=== PATIENT | female | born 1985 | race African-American/Black ===

== ENCOUNTER 2017-09-12 05:42 | Emergency (ER) | payer OTHER, SELFPAY ==
[2017-09-12 06:44] LABS: Absolute Lymphocytes (CBC) 1.2 K/uL (0.7-4.9); Absolute Monocytes 0.7 K/uL (0.1-1.3); Absolute Neutrophil 14.1 K/uL (1.8-8.0); Basophils % 0.7 % (0-1.3); Eosinophils % 0.1 % (0-4.4); Hematocrit 36.8 % (36.0-45.0); Lymphocytes % 7.5 % (15.3-44.8); MCH 26.2 pg (27.0-35.0); MCV 79.3 fL (80-100); MPV 8.9 fL (7.6-11.3); Monocytes % 4.3 % (3.3-12.3); RBC Red Blood Cell Count 4.64 M/uL (3.86-4.86)
[2017-09-12 06:48] LABS: Protime INR 1.01
[2017-09-12 06:57] LABS: Bicarbonate 27 mEq/L (21-31); Glucose Level 104 mg/dL (65-120); Potassium 3.5 mEq/L (3.6-5.0); Sodium Level 141 mEq/L (135-145)
[2017-09-12 07:03] LABS: ALT/SGPT 15 IU/L (10-60); AST/SGOT 16 IU/L (10-42); Albumin 3.9 g/dL (3.2-5.5); Alkaline Phosphatase 71 IU/L (42-121); BUN Blood Urea Nitrogen 10 mg/dL (6-20); Bilirubin Direct 0.1 mg/dL (0-0.2); Bilirubin Total 0.2 mg/dL (0.3-1.2); Magnesium 1.8 mg/dL (1.8-2.5); Protein, Total 7.2 g/dL (6.0-8.3)
[2017-09-12 07:10] LABS: Urine Blood 3+ (NEG); Urine Glucose NEGATIVE (NEG); Urine Protein NEGATIVE (NEG); Urine Specific Gravity <1.005 (1.005-1.030); Urine pH 6.5 (5.0-7.0)
[2017-09-12] MEDS ORDERED: NA CHLORIDE 0.9% 1,000 ML ONE (07:16)
--- NOTE | 2017-09-12 07:36 | EKG ---
Test Date: 2017-09-12 Test Time: 05:55:48 Lead Dental Assistant: BRYAN MEASUREMENT RESULTS: Intervals: Rate: 69 WA: 150 QRSD: 88 QT: 398 QTc: 426 Mack: P: 8 WA: 150 QRS: 25 T: 22 INTERPRETIVE STATEMENTS: Normal sinus rhythm Normal ECG No previous ECG available for comparison Electronically Signed On 09-12-17 07:36:16 CDT by Gilmer Mcdonough
--- NOTE | 2017-09-12 08:19 | ER ---
Nurse's Notes [facility] Name: Qi Hoskins Age: 32 yrs Sex: Female : 1985 Arrival Date: 09/12/2017 Time: 05:44 Bed 20 Private MD: Diagnosis: Chest pain, unspecified Presentation: 09/12 05:45 Presenting complaint: Patient states: "I began having chest pain about 3 hours ago and bs1 shortness of breath, I have a hx of a heart murmur.". 05:45 Transition of care: patient was not received from another setting of care. Onset of bs1 symptoms was September 12, 2017 at 02:45. Initial Sepsis Screen: Does the patient meet any 2 criteria? No. Patient's initial sepsis screen is negative. Does the patient have a suspected source of infection? No. Patient's initial sepsis screen is negative. Care prior to arrival: None. 05:45 Method Of Arrival: Law Enforcement: [place] bs1 05:45 Acuity: OSCAR 3 bs1 RN EMERGENCY: 05:45 LMP 09/11/2017 bs1 Historical: - Allergies: 05:58 No Known Allergies; bs1 - Home Meds: 05:58 Folic Acid Oral [Active]; HTN med [Active]; bs1 - PMHx: 05:58 Hypertension; Sickle Cell; Heart Murmur; bs1 - PSHx: 05:58 None; bs1 - Immunization history:: Adult Immunizations up to date. - Social history:: Smoking status: Patient/guardian denies using tobacco. Screenin:00 Abuse screen: Denies threats or abuse. Denies injuries from another. Nutritional bs1 screening: No deficits noted. Tuberculosis screening: No symptoms or risk factors identified. Fall Risk None identified. Assessment: 06:02 General: Appears in no apparent distress. Behavior is calm, cooperative. Pain: bs1 Complains of pain in mid chest Pain radiates to right side of chest Pain currently is 8 out of 10 on a pain scale. Quality of pain is described as aching. Neuro: Level of Consciousness is awake, alert, obeys commands, Oriented to person, place, time, situation, Appropriate for age Insurance Salesman are equal bilaterally. Cardiovascular: Reports chest pain, shortness of breath, Heart tones S1 S2 present Capillary refill < 3 seconds Patient's skin is warm and dry. Respiratory: Airway is patent Trachea midline Respiratory effort is even, unlabored, Respiratory pattern is regular, symmetrical, Breath sounds are clear bilaterally. GI: No deficits noted. No signs and/or symptoms were reported involving the gastrointestinal system. : No deficits noted. No signs and/or symptoms were reported regarding the genitourinary system. EENT: No deficits noted. No signs and/or symptoms were reported regarding the EENT system. Derm: Skin is intact, Skin is pink, warm \\T\\ dry. Musculoskeletal: Circulation, motion, and sensation intact. Capillary refill < 3 seconds, Range of motion: intact in all extremities. 07:00 Reassessment: Patient and/or family updated on plan of care and expected duration. Pain jl7 level reassessed. Patient is alert, oriented x 3, equal unlabored respirations, skin warm/dry/pink. Patient denies pain at this time. 08:15 Reassessment: Provider at bedside discussing plan of care. jl7 08:27 Reassessment: awaiting bolus to complete before discharge. jl7 Vital Signs: 05:45 BP 114 / 67; Pulse 87; Resp 16; Temp 98.3(O); Pulse Ox 95% on R/A; Weight 105.23 kg; bs1 Height 5 ft. 2 in. (157.48 cm); Pain 8/10; 07:00 BP 135 / 71; Pulse 59; Resp 16; Pulse Ox 94% ; jl7 07:58 BP 112 / 61; Pulse 61; Resp 16; Pulse Ox 94% ; jl7 08:16 BP 102 / 72; Pulse 62; Resp 16; Pulse Ox 98% ; jl7 09:10 BP 110 / 74; Pulse 65; Resp 16; Pulse Ox 99% ; jl7 05:45 Body Mass Index 42.43 (105.23 kg, 157.48 cm) bs1 ED Course: 05:44 Patient arrived in ED. fc 05:56 Triage completed. bs1 06:01 Patient has correct armband on for positive identification. Bed in low position. Call bs1 light in reach. Side rails up X 1. Adult w/ patient. media monitor on. Pulse ox on. NIBP on. Sitter at bedside. 06:01 Arm band placed on placed. EKG completed in triage. Results shown to MD. bs1 06:03 Rubén Clark NP is PHCP. pm1 06:03 Ramin Hernandez MD is Attending Physician. pm1 06:32 Inserted saline lock: 20 gauge in right antecubital area, using aseptic technique. oe Blood collected. 06:33 X-ray completed. Portable x-ray completed in exam room. jr1 06:34 XRAY Chest (1 view) In Process Unspecified. EDMS 07:14 Dylon Fernandes, RN is Primary Nurse. jl7 09:10 No provider procedures requiring assistance completed. IV discontinued, intact, jl7 bleeding controlled, No redness/swelling at site. Pressure dressing applied. Administered Medications: 07:22 Drug: NS 0.9% 1000 ml Route: IV; Rate: 1000 ml; Site: right antecubital; jl7 09:10 Follow up: IV Status: Completed infusion jl7 08:22 Drug: Ibuprofen 600 mg Route: PO; jl7 09:10 Follow up: Response: No adverse reaction jl7 Outcome: 08:18 Discharge ordered by MD. pm1 09:10 Discharged to home ambulatory. jl7 09:10 Condition: stable 09:10 Discharge instructions given to patient, police, Instructed on discharge instructions, follow up and referral plans. Demonstrated understanding of instructions, follow-up care. 09:29 Patient left the ED. jl7 Signatures: Dispatcher [employer] EDW[place] Alejandra Bansal jr1 Jenny Hill, RN Rubén Leon NP [employer] pm1 Bolivar Hurtado oe Dylon Fernandes RN RN jl7 Marlyn Blanchard RN RN bs1 Corrections: (The following items were deleted from the chart) 08:17 07:58 BP 112 / 61; Pulse 61bpm; Resp 16bpm; Pulse Ox 94%; jl7 jl7
--- NOTE | 2017-09-12 08:19 | EDPHYS ---
Physician Documentation [facility] Name: Qi Hoskins Age: 32 yrs Sex: Female : 1985 Arrival Date: 09/12/2017 Time: 05:44 Bed 20 Private MD: ED Physician Ramin Hernandez HPI: 09/12 06:50 This 32 yrs old Black Female presents to ER via Law Enforcement with complaints of pm1 Chest Pain. 06:50 The patient or guardian reports chest pain that is located primarily in the mid-sternal pm1 area. The pain does not radiate. Associated signs and symptoms: Pertinent positives: shortness of breath, Pertinent negatives: abdominal pain, cough, diaphoresis, dizziness, headache, nausea, palpitations, vomiting. The chest pain is described as sharp. Duration: The patient or guardian reports a single episode, that is still ongoing. Modifying factors: the symptoms are aggravated by deep breath, palpation of area, Movement of left arm. Severity of pain: in the emergency department the pain is unchanged. The patient has experienced similar episodes in the past, a few times. The patient has not recently seen a physician. Patient with onset of chest pain between 8-9 PM last night. Patient with mid-sternal chest pain that is reproduced with palpation, deep breathing, movement of left arm, and getting up from lying or sitting (pushing herself up with arms). Patient reports shortness of breath due to chest pain with deep inspiration. 06:50 Patient initially came to the emergency department for lab draw under police custody. pm1 [employer]INE[employer]: 05:45 LMP 09/11/2017 bs1 Historical: - Allergies: 05:58 No Known Allergies; bs1 - Home Meds: 05:58 Folic Acid Oral [Active]; HTN med [Active]; bs1 - PMHx: 05:58 Hypertension; Sickle Cell; Heart Murmur; bs1 - PSHx: 05:58 None; bs1 - Immunization history:: Adult Immunizations up to date. - Social history:: Smoking status: Patient/guardian denies using tobacco. ROS: 06:50 Constitutional: Negative for fever, chills, and weight loss, Eyes: Negative for injury, pm1 pain, redness, and discharge, ENT: Negative for injury, pain, and discharge, Neck: Negative for injury, pain, and swelling. 06:50 Abdomen/GI: Negative for abdominal pain, nausea, vomiting, diarrhea, and constipation, Back: Negative for injury and pain, : Negative for injury, bleeding, discharge, and swelling, MS/Extremity: Negative for injury and deformity, Skin: Negative for injury, rash, and discoloration, Neuro: Negative for headache, weakness, numbness, tingling, and seizure. 06:50 Cardiovascular: Positive for chest pain, Negative for edema, orthopnea, palpitations. 06:50 Respiratory: Positive for shortness of breath, Negative for cough, sputum production, wheezing. Exam: 06:50 Constitutional: This is a well developed, well nourished patient who is awake, alert, pm1 and in no acute distress. Head/Face: Normocephalic, atraumatic. Eyes: Pupils equal round and reactive to light, extra-ocular motions intact. Lids and lashes normal. Conjunctiva and sclera are non-icteric and not injected. Cornea within normal limits. Periorbital areas with no swelling, redness, or edema. ENT: Nares patent. No nasal discharge, no septal abnormalities noted. Tympanic membranes are normal and external auditory canals are clear. Oropharynx with no redness, swelling, or masses, exudates, or evidence of obstruction, uvula midline. Mucous membranes moist. Neck: Trachea midline, no thyromegaly or masses palpated, and no cervical lymphadenopathy. Supple, full range of motion without nuchal rigidity, or vertebral point tenderness. No Meningismus. 06:50 Cardiovascular: Regular rate and rhythm with a normal S1 and S2. No gallops, murmurs, or rubs. No pulse deficits. Respiratory: Lungs have equal breath sounds bilaterally, clear to auscultation and percussion. No rales, rhonchi or wheezes noted. No increased work of breathing, no retractions or nasal flaring. Abdomen/GI: Soft, non-tender, with normal bowel sounds. No distension or tympany. No guarding or rebound. No evidence of tenderness throughout. Back: No spinal tenderness. No costovertebral tenderness. Full range of motion. Skin: Warm, dry with normal turgor. Normal color with no rashes, no lesions, and no evidence of cellulitis. MS/ Extremity: Pulses equal, no cyanosis. Neurovascular intact. Full, normal range of motion. 06:50 Chest/axilla: Inspection: normal, Palpation: tenderness, of the mid-sternal area, that totally reproduces the patient's complaints, Focal point location that is reproduced with palpation, deep breathing, and movement of left arm. 06:50 Neuro: Orientation: is normal, Mentation: is normal, Motor: moves all fours. Vital Signs: 05:45 BP 114 / 67; Pulse 87; Resp 16; Temp 98.3(O); Pulse Ox 95% on R/A; Weight 105.23 kg; bs1 Height 5 ft. 2 in. (157.48 cm); Pain 8/10; 07:00 BP 135 / 71; Pulse 59; Resp 16; Pulse Ox 94% ; jl7 07:58 BP 112 / 61; Pulse 61; Resp 16; Pulse Ox 94% ; jl7 08:16 BP 102 / 72; Pulse 62; Resp 16; Pulse Ox 98% ; jl7 09:10 BP 110 / 74; Pulse 65; Resp 16; Pulse Ox 99% ; jl7 05:45 Body Mass Index 42.43 (105.23 kg, 157.48 cm) bs1 MDM: 06:04 Patient medically screened. pm1 08:17 Data reviewed: vital signs. Data interpreted: Pulse oximetry: on room air is 98 %. pm1 Interpretation: normal. Counseling: I had a detailed discussion with the patient and/or guardian regarding: the historical points, exam findings, and any diagnostic results supporting the discharge/admit diagnosis, lab results, radiology results, the need for outpatient follow up, to return to the emergency department if symptoms worsen or persist or if there are any questions or concerns that arise at home. 09/12 06:12 Order name: Basic Metabolic Panel; Complete Time: 07:07 pm09/12 06:12 Order name: BNP; Complete Time: 07:13 pm1 09/12 06:12 Order name: CBC with Diff; Complete Time: 08:33 pm09/12 06:12 Order name: LFT's; Complete Time: 07:07 pm09/12 06:12 Order name: Magnesium; Complete Time: 07:07 pm1 09/12 06:12 Order name: PT-INR; Complete Time: 07:01 pm09/12 06:12 Order name: Ptt, Activated; Complete Time: 07:01 pm09/12 06:12 Order name: Troponin (emerg Dept Use Only); Complete Time: 07:33 pm1 09/12 06:12 Order name: XRAY Chest (1 view) pm1 09/12 06:12 Order name: EKG; Complete Time: 06:13 pm1 09/12 06:43 Order name: Urine Dipstick--Ancillary (enter results); Complete Time: 07:13 oe 09/12 08:27 Order name: CBC Smear Scan; Complete Time: 08:33 EDMS 09/12 06:12 Order name: Urine Test (obtain specimen); Complete Time: 06:47 pm1 09/12 06:12 Order name: Cardiac monitoring; Complete Time: 06:25 pm1 09/12 06:12 Order name: EKG - Nurse/Tech; Complete Time: 06:25 pm09/12 06:12 Order name: IV Saline Lock; Complete Time: 06:33 pm1 09/12 06:12 Order name: Labs collected and sent; Complete Time: 06:33 pm09/12 06:12 Order name: O2 Per Protocol; Complete Time: 06:25 pm09/12 06:12 Order name: O2 Sat Monitoring; Complete Time: 06:25 pm1 09/12 06:12 Order name: Urine Dipstick-Ancillary (obtain specimen); Complete Time: 06:41 pm1 Administered Medications: 07:22 Drug: NS 0.9% 1000 ml Route: IV; Rate: 1000 ml; Site: right antecubital; jl7 09:10 Follow up: IV Status: Completed infusion jl7 08:22 Drug: Ibuprofen 600 mg Route: PO; jl7 09:10 Follow up: Response: No adverse reaction jl7 Disposition: 09/12/17 08:18 Discharged to Home. Impression: Chest pain, unspecified. - Condition is Stable. - Discharge Instructions: Nonspecific Chest Pain. - Medication Reconciliation Form, Thank You Letter form. - Follow up: Emergency Department; When: As needed; Reason: Worsening of condition. Follow up: Private Physician; When: 2 - 3 days; Reason: Recheck today's complaints, Continuance of care, Re-evaluation by your physician. - Problem is new. - Symptoms have improved. - Notes: Take ibuprofen or tylenol as needed for pain Addendum: 09/15/2017 19:50 Co-signature as Attending Physician, Ramin Hernandez MD. g s Signatures: Dispatcher [employer] EDMS Rubén Clark, PER NURSING ADMIN pm1 Dylon Fernandes RN RN jl7 Ramin Hernandez MD MD Marlyn Blanchard, RN RN bs1 Corrections: (The following items were deleted from the chart) 09/12 09:29 08:18 09/12/2017 08:18 Discharged to Home. Impression: Chest pain, unspecified. jl7 Condition is Stable. Forms are Medication Reconciliation Form, Thank You Letter, Antibiotic Education, Prescription Opioid Use. Follow up: Emergency Department; When: As needed; Reason: Worsening of condition. Follow up: Private Physician; When: 2 - 3 days; Reason: Recheck today's complaints, Continuance of care, Re-evaluation by your physician. Problem is new. Symptoms have improved. pm1
[2017-09-12] MEDS ORDERED: IBUPROFEN 200 MG TAB PO ONE (08:20)
[2017-09-12] MEDS ORDERED: IBUPROFEN 400 MG TAB ONE (08:20)
[2017-09-12 08:26] LABS: Platelet Estimate ADEQ; Urine White Blood Cell Casts OK
[2017-09-12 08:27] LABS: Blood Morphology Comment NOT SEEN (NOT SEEN)
--- NOTE | 2017-09-12 10:14 | RAD REPORT ---
EXAM DESCRIPTION: [place] Single View09/12/2017 6:35 am CLINICAL HISTORY: Chest pain COMPARISON: none FINDINGS: The lungs appear clear of acute infiltrate. The heart is normal size IMPRESSION: No acute abnormalities displayed
== END 2017-09-12 09:29 | disposition home or self-care (01) ==
LOC: ER 05:42
DX: R07.9 Chest pain, unspecified (principal); I10 Essential (primary) hypertension; R01.1 Cardiac murmur, unspecified
CPT/HCPCS: 36415; 71045; 80048; 80076; 81003; 83735; 83880; 84484; 85025; 85610; 85730; 93005; 96360; 96361; 99285; J7030